=== PATIENT | female | born 1975 | race Caucasian/White ===

== ENCOUNTER 2023-01-09 14:46 | Emergency (ER) | payer MEDICAID, SELFPAY ==
[2023-01-09 14:49] VITALS: BP 171/95; PULSE 101; RESP 18; TEMP 36.6; O2SAT 98
--- NOTE | 2023-01-09 16:00 | RAD_ITS ---
EXAM: XR CHEST, 1 VIEW CLINICAL INDICATION: cough TECHNIQUE: Frontal view of the chest. COMPARISON: XR Chest dated 05/29/2015 FINDINGS: LUNGS AND PLEURAL SPACES: No consolidation or edema. No pneumothorax. No effusion. HEART: Normal heart size. MEDIASTINUM: No mediastinal or hilar mass. BONES/JOINTS: No acute abnormality. RAD/Chest 1 View (Portable) IMPRESSION: No acute cardiopulmonary abnormality. No interval change. Electronically Signed: Karl Lopez MD at 16:18 EDT ,
[2023-01-09] MEDS: Acetaminophen 500 MG Tablet 1000 MG PO (16:08)
--- NOTE | 2023-01-09 16:56 | EDS_ITS ---
HPI History of Present Illness Chief Complaint: Cold Sx Narrative Narrative: Patient presenting with body aches, chills, subjective fever. [facility] She states she was near somebody who has COVID. The patient has been placed in quarantine. Patient denies any cough or shortness of breath but does have rhinorrhea and sinus congestion. PFSH PFSH Allergy/AdvReac Type Severity Reaction Status Date / Time No Known Allergies Allergy Verified 01/09/23 14:50 Surgical History no surgical history Social History Smoking Status: Never smoker ROS ROS ED Constitutional Constitutional ED: Denies chills, fever(s) or sweats Eyes Eyes: Denies blurry vision or change in vision ENT ENT ED: Reports rhinorrhea and sore throat; Denies ear pain Cardiovascular Cardiovascular: Denies chest pain, palpitations or racing heartbeat Respiratory/Chest Respiratory/Chest: Reports cough; Denies sputum Gastrointestinal Gastrointestinal: Denies abdominal pain, constipation, diarrhea, nausea or vomiting Genitourinary Genitourinary ED: Denies dysuria, hematuria or urinary frequency Musculoskeletal Musculoskeletal: Denies arthralgias, myalgias or neck pain Integumentary Denies abscess, Abrasions or rash Neurologic Neurologic: Reports headache(s); Denies paresthesias or weakness Psychiatric Psychiatric: Denies anxiety, depression, suicidal ideation or suicidal thoughts Endocrine Endocrinology: Denies polydipsia or polyuria EXAM Physical Exam Const Vital Signs: 01/09/23 14:49 01/09/23 16:27 Temperature 97.8 F Temperature Source Temporal Pulse Rate 101 H Respiratory Rate 18 Respiratory Effort Normal Non-Labored Blood Pressure 171/95 H Blood Pressure Mean 120 Pulse Ox 98 Oxygen Delivery Method Room Air Positive well nourished General Appearance ED: NAD; Negative for pallor HEENT Reports moist mucous membranes Eyes PERRL and EOMs intact bilaterally Neck no lymphadenopathy, supple and no meningeal signs Resp normal respiratory effort and clear to auscultation bilaterally Auscultation: Negative for rales, rhonchi or wheezes Cardio regular rate and regular rhythm GI non-tender Neuro oriented x3 and CN's II-XII intact bilaterally Sensorium / Orientation: alert Psych mental status grossly normal Skin no wounds General Skin Exam: Negative for jaundice or pallor MDM MDM MDM Narrative Medical decision making narrative: Patient with viral symptoms. She was exposed to COVID-19. Rapid COVID was positive today. Chest x-ray was obtained and shows no acute process on my interpretation. Radiologist interprets and agrees. Patient was offered Toradol but she declines. She did request acetaminophen which is given. Patient counseled on return precautions but I believe she stable for discharge at this time. Signs are stable otherwise. Impression: 1. COVID-19 Lab Data Attestation: I reviewed the patient's lab results. Radiography Diagnostic Testing: Clinical Impression(s) from Imaging Studies Chest X-Ray 01/09/23 16:00 IMPRESSION: No acute cardiopulmonary abnormality. No interval change. Electronically Signed: Karl Lopez MD at 16:18 EDT , Discharge Plan Triage Chief Complaint: Cold Sx ED Provider: Asif Perry Dx/Rx/DC Orders Primary Care Provider: Alfredo Silveira Referrals: Alfredo Silveira, DO [Primary Care Provider] -
[2023-01-09 19:35] VITALS: PULSE 78; RESP 18; O2SAT 98
== END 2023-01-09 19:36 | disposition home or self-care (01) ==
PROVIDERS: Emergency Provider Student in an Organized Health Care Education/Training Program; PCP Student in an Organized Health Care Education/Training Program; Visit Provider Student in an Organized Health Care Education/Training Program
DX: U07.1 COVID-19 (principal); Z59.01 Sheltered homelessness
CPT/HCPCS: 71045; 87428; 99284